=== PATIENT | female | born 1980 ===

== ENCOUNTER 2019-10-05 11:13 | Emergency (ER) | payer MEDICAID ==
[~2019-10-05] VITALS: Ht 162.6 cm; Wt 95.5 kg
[2019-10-05 11:18] VITALS: BP 176/73; PULSE 99; TEMP 98.6
[2019-10-05] MEDS ORDERED: WATER PILL (11:30)
[2019-10-05] MEDS ORDERED: BLOOD PRESSURE MED (11:30)
[2019-10-05] MEDS ORDERED: GLUCOPHAGE500 MG/TAB (11:30)
[2019-10-05] MEDS ORDERED: NAPROSYN500 MG PO (13:51)
== END 2019-10-05 14:01 | disposition home or self-care (01) ==
LOC: COL.ER 11:13
DX: M25.511 Pain in right shoulder (principal); E11.9 Type 2 diabetes mellitus without complications; I10 Essential (primary) hypertension; Z79.84 Long term (current) use of oral hypoglycemic drugs
CPT/HCPCS: J1885

== ENCOUNTER → 2020-07-11 | Outpatient (CLI) | payer MEDICARE, MEDICAID ==
[~2020-07-11] MED LIST: BLOOD PRESSURE MED; GLUCOPHAGE500 MG/TAB; NAPROSYN500 MG PO; WATER PILL
== END ==
LOC: COL.RAD 13:08
DX: M17.11 Unilateral primary osteoarthritis, right knee (principal)

== ENCOUNTER 2021-04-05 09:56 | Outpatient (CLI) | payer MEDICARE, MEDICAID ==
[2021-04-05] VITALS (8 sets, daily range): BP systolic 106–158; BP diastolic 49–67; PULSE 60–91; TEMP 99.1
[2021-04-05] MEDS ORDERED: OZEMPIC1 MG/0.75 SQ (11:15)
== END 2021-04-05 12:30 | disposition home or self-care (01) ==
LOC: EUO 09:56
DX: U07.1 COVID-19 (principal); E66.9 Obesity, unspecified; E11.9 Type 2 diabetes mellitus without complications
CPT/HCPCS: M0245

== ENCOUNTER 2021-08-31 09:22 | Outpatient (RCR) | payer MEDICARE, MEDICAID ==
[~2021-08-31 09:22] MED LIST changes: +OZEMPIC1 MG/0.75 SQ
== END 2021-08-31 09:23 | disposition home or self-care (01) ==
LOC: MKS.ESL.PT 09:22
DX: I89.0 Lymphedema, not elsewhere classified (principal)